=== PATIENT | female | born 1970 | race Caucasian/White ===

== ENCOUNTER → 2023-04-30 00:27 | Outpatient (CLI) | payer OTHER, SELFPAY ==
--- NOTE | 2023-04-30 | DI.MAMMO_ITS ---
Exam(s) MAMMO SCREENING EXAM: MAMMO SCREENING Samira HECTOR CLINICAL HISTORY: Z12.31 SCREENING FOR BREAST CANCER TECHNIQUE: Bilateral full field digital CC and MLO mammographic images were obtained with 3D tomosyn thesis and utilizing computer aided detection (CAD). COMPARISON: Available for comparison. FINDINGS: Masses/Architectural Distortion: None seen. Microcalcifications: No suspicious pleomorphic-type are seen. Skin Thickening/Nipple Retraction: None. IMPRESSION: 1. No significant interval change with no specific features of malignancy noted. 2. Unless there is more urgent need, screening mammography is recommended, as per [employer] guidelines. BI-RADS Category 1 - Negative Breast Density - Category C - Heterogeneously dense Breast density category C or D implies that the patient has dense breast tissue. Dense breast tissue is very common and is not abnormal but dense breast tissue can make it harder to find cancer on a ma mmogram. Also, dense breast tissue may increase their breast cancer risk. This information about the result of the mammogram report was provided to the patient to raise their awareness. Use this report when you speak with the patient about their risks for breast cancer, which includes their family hist ory. At that time, you may recommend for more screening tests (Ultrasound or MRI) as they might be us eful based on their risk. A negative radiographic report should not delay biopsy if a dominant or clinically suspicious mass is present. Up to ten percent of cancers are not identified on mammography. A negative report may reinforce clinical impression. Adenosis and dense breasts may obscure an underlying neoplasm. False positive reports average 6 to 10%. Patient will receive a letter notifying them of these results.
== END ==
PROVIDERS: Visit Provider Obstetrics & Gynecology
DX: Z12.31 Encounter for screening mammogram for malignant neoplasm of breast (principal)
CPT/HCPCS: 77063; 77067

== ENCOUNTER 2024-06-04 00:56 | Outpatient (CLI) | payer OTHER, SELFPAY ==
--- NOTE | 2024-06-04 09:15 | DI.MAMMO_ITS ---
Exam(s) MAMMO SCREENING EXAM: MAMMO SCREENING CLINICAL HISTORY: screening,z12.39 TECHNIQUE: Mammograms were interpreted according to the usual protocol including computer analysis w [employer] CAD system, tomosynthesis and C-view imaging. COMPARISON: 2015 through 2022 FINDINGS: The breasts are composed of heterogeneously dense fibroglandular densities, Breast Density category C . No suspicious masses or suspicious microcalcifications are seen. No skin thickening or abnormal axillary lymph nodes are seen. There has been no significant change from prior exams. IMPRESSION: BI-RADS Category 1, Negative mammogram. Yearly screening mammography is recommended. Breast Density Category C, heterogeneously Dense. The mammogram demonstrates the patient's breast tissue is dense. Dense breast tissue is very common a nd is not abnormal but dense breast tissue can make it harder to find cancer on a mammogram. Also, de nse breast tissue may increase breast cancer risk. This information about the result of the mammogram report was provided to the patient to raise their awareness. Use this report when you speak with the patient about their risks for breast cancer, which includes their family history. At that time, you may recommend additional screening tests (Ultrasound or MRI) as they might be useful based on their r isk. A negative radiographic report should not delay biopsy if a dominant or clinically suspicious mass is present. Up to ten percent of cancers are not identified on mammography. A negative report may reinforce clinical impression. Adenosis and dense breasts may obscure an underlying neoplasm. False positive reports average 6 to 10%.
--- NOTE | 2024-06-04 12:32 | DI.RAD_ITS ---
Exam(s) XR KNEE LT 3V AP,LAT,LEELA EXAM: XR KNEE LT 3V AP,LAT,LEELA CLINICAL HISTORY: lt knee pain,locking lt knee,assess bones,m25.562.[id number],m23.92. TECHNIQUE: 2D digital imaging was performed. Three views. COMPARISON: No exams were available for comparison FINDINGS: BONES: No acute fracture is present. No bony destructive lesion is seen. JOINTS: The knee is normally aligned. No joint effusion is seen. The joint spaces are maintained. N o significant degenerative changes. SOFT TISSUE: Normal. IMPRESSION: Normal radiographs of the left knee. DATA REPOSITORY: RADIATION DOSE DELIVERED:
== END 2024-06-04 01:16 ==
LOC: DI 00:57
PROVIDERS: PCP Nurse Practitioner Adult Health; Visit Provider Nurse Practitioner Adult Health
DX: Z12.31 Encounter for screening mammogram for malignant neoplasm of breast (principal); M25.562 Pain in left knee; R29.898 Other symptoms and signs involving the musculoskeletal system
CPT/HCPCS: 73562; 77063; 77067

== ENCOUNTER 2024-07-17 00:44 | Outpatient (CLI) | payer OTHER, SELFPAY ==
--- NOTE | 2024-07-17 07:45 | DI.MRI_ITS ---
Exam(s) MR LOWER JOINT LT WO EXAM: MR LOWER JOINT LT WO CLINICAL HISTORY: INTERNAL DERANGEMENT, lt knee pain, M25.562. TECHNIQUE: Multiplanar multisequence MRI was performed. COMPARISON: CR XR KNEE LT 3V AP,LAT,LEELA from 06/04/2024 FINDINGS: BONES: There is no fracture or contusion pattern. JOINTS: Articular cartilage is unremarkable. No effusion is present. TENDONS: Extensor mechanism: Unremarkable. Medial retinaculum: Unremarkable. Lateral retinaculum: Unremarkable. Popliteus: Unremarkable. MUSCLES: Unremarkable. MENISCI: There is hyperintense signal seen in the body and posterior horn of the medial meniscus cons istent with a tear. The lateral meniscus is unremarkable. SOFT TISSUES: There is a small popliteal cyst present. LIGAMENTS: Anterior Cruciate: Unremarkable. Posterior Cruciate: Unremarkable. Medial Collateral:Unremarkable. Lateral Collateral: Unremarkable. OTHER: IMPRESSION: 1. Tear of the body and posterior horn of the medial meniscus. 2. No evidence of a ligament tear. DATA REPOSITORY:
== END 2024-07-17 01:04 ==
LOC: DI 00:44
PROVIDERS: PCP Nurse Practitioner Adult Health; Visit Provider Student in an Organized Health Care Education/Training Program
DX: M23.222 Derangement of posterior horn of medial meniscus due to old tear or injury, left knee (principal)
CPT/HCPCS: 73721

== ENCOUNTER 2024-08-14 10:47 | Day surgery (SDC) | payer OTHER, SELFPAY ==
[2024-08-14] VITALS (26 sets, daily range): BP systolic 82–123; BP diastolic 44–70; PULSE 66–87; RESP 11–18; TEMP 36.2–36.5; O2SAT 94–100; BMI 24.7
--- NOTE | 2024-08-14 07:17 | ROE_ITS ---
Operative Note Operative Note PRE-OP DIAGNOSIS: Left knee 1. Medial meniscus tear POST-OP DIAGNOSIS: same PROCEDURE: Left knee 1. Partial medial meniscectomy, CPT #31062 SURGEON: Cuco West AGRICULTURE CONSULTANT: None None ANESTHESIA TYPE: Local By Surgeon and General LMA/ETT Refer to Anesthesia Record PATHOLOGY: none sent TOURNIQUET TIME: 0 Patient was transported to: PACU Patient's condition: stable Indications: Please see complete medical record for details. Findings: Exam under anesthesia: Full range of motion, no instability Arthroscopic findings: Large vertical peripheral capsular medial meniscus tear, with readily displaceable majority medial meniscus tissue somewhat and like a bucket handle but still slightly attached at the superior body capsular margin but defect void the majority the inferior portion and unstable through the posterior horn and anterior horns as well. Intact cartilage. Intact ACL. Intact lateral compartment. Small medial gutter plica. Patellofemoral cartilage intact. Suprapatellar space okay as well. Procedure Description: In the operating room, general anesthesia was induced. The patient was positioned supine on the operating room table. All bony prominences were well- padded. Preoperative antibiotics were administered. The knee was prepped and draped in the usual sterile fashion. The correct patient, procedure, and side of the procedure were all verified prior to incision. Exam under anesthesia was performed. 10 cc of 0.25% bupivacaine containing epinephrine was infiltrated about the planned anteromedial and anterolateral knee arthroscopy portals. The portals were established and a complete diagnostic arthroscopy was performed with relevant findings detailed above. Mechanical shaver was used to remove a smaller medial gutter plica. The medial meniscus tear was then inspected and unfortunately quite large and peripheral but had splits that continued from the body into the anterior and posterior horns in different planes. Given the advanced patient age, decision was made to proceed with meniscectomy over repair given the poor chance for healing in iso lation. Using a combination of hand instruments meniscal biters and power shaver and working through the anteromedial and anterolateral portals the meniscus was debrided of all torn tissue to a stable margin. Care was taken to preserve as much meniscus tissue was possible, but that only meant a small remnant of the posterior horn nearing the root and the anterior horn with the majority of the body resected to the peripheral margin. The remnant was inspected and stable with no additional tearing. The knee was copiously irrigated with arthroscopic fluid until there was a clear effluent before being drained of all fluid. The anteromedial and anterolateral portals were closed in 3-0 Monocryl in a buried interrupted fashion. An additional 20 cc of 0.25% bupivacaine containing epinephrine was infiltrated about the medial compartment cutaneous tissues in the region of medial meniscus surgery. Mastisol, Steri-Strips, and 4 x 4 gauze were applied over the incisions. The knee was then wrapped gently with an JOSEPH comressive bandage. The patient awoke from anesthesia without complication and was transferred to the recovery room in a stable condition. Date of Procedure: 08/14/24
--- NOTE | 2024-08-14 10:44 | W.PM.DSUDISC ---
Date of service: 08/14/24 Discharge Plan Disposition Patient Disposition: Home Condition: Stable Discharge Details Attending Provider: Cuco West Primary Care Provider: Jodie Mccloud Home Meds and New Rx's Prescriptions: New aspirin 81 mg capsule 81 mg PO DAILY 14 Days Qty: 14 0RF naproxen 250 mg tablet 250 - 500 mg PO BID PRN (Reason: moderate pain and swelling) Qty: 40 0RF oxycodone 5 mg tablet 5 - 10 mg PO .q4-6h MDD 30 mg PRN (Reason: severe pain) Qty: 18 0RF Continued folic acid 1 mg tablet 1 mg PO DAILY Qty: 90 3RF magnesium 200 mg tablet 200 mg PO QHS cranberry PO DAILY coenzyme Q10 [H2Q CoQ10] PO DAILY cholecalciferol (vitamin D3) 25 mcg (1,000 unit) capsule 25 mcg PO DAILY citalopram 10 mg tablet 10 mg PO DAILY Qty: 90 3RF sumatriptan succinate [Imitrex] 100 mg tablet 100 mg PO .COMPLEX Rx Instructions: Take 1 tab PO after onset of migraine; may repeat after 2 hours if headache returns, not to exceed 200mg in 24hrs-- hydroxyzine HCl 25 mg tablet 25 mg PO QID PRN Rx Instructions: take 1 tab PO up to 4 times a day for panic attack-- mecobalamin (vitamin B12) 500 mcg tablet,chewable 250 mcg PO .2 times a week Discharge Instructions Additional Instructions: Surgery: Left knee arthroscopy with subtotal medial meniscectomy 08/14/24 Activity: Weightbearing as tolerated. Advance range of motion as comfort allows. No knee brace or crutches needed as soon as comfortable. Recommend avoiding sports, pivoting, and squatting for 6-8 weeks. A physical therapy prescription will be sent electronically to start in about 3 weeks. Prescriptions: Aspirin 81 mg take 1 daily to prevent a blood clot for 14 days, starting tomorrow Naproxen 250 mg take 1-2 every 12 hours with a meal as needed for moderate pain Oxycodone 5 mg take 1-2 every 4-6 hours as needed for severe pain You may use [id number] Tylenol (acetaminophen) as needed for mild pain. These pain medications may be taken all at once or in different combinations as needed. Also, recommend Colace (docusate) as a stool softener as surgery and pain medicine cause constipation. You may try [id number] diphenhydramine (Benadryl) 25-50 mg nightly as a sleep aid Dressings: Leave dressing in place for 3 days. May then remove and leave open to air or cover incisions with Band-Aids. Leave the sticky Steri-Strips in place until they fall off or remove them after you shower. May shower after 5 days. Follow-up: 10-[address] West You may take off the leg compression stockings this evening at home. You may also leave them on a few days longer if you have a history of leg swelling or edema. Let us know right away if you develop any redness, drainage, fevers, chest pain, or trouble breathing. Do not drink alcohol or drive for at least 24 hours after anesthesia. Please call the office during business hours with any questions or concerns. Stand Alone Forms: Anesthesia Discharge Inst., Emilia Siu (U) Referrals: Cuco West MD [ [facility] STAFF PHYSICIAN] - 08/26/24 9:00 am Discharge Orders Discharge Orders: Discharge Order (Routine); Ordered 08/14/24 Ordered By: Nichelle Foley DS: Diagnosis Discharge Diagnosis (1) Tear of medial meniscus of left knee: Status: Acute
[2024-08-14] MEDS: Lactated Ringers 1,000 ML 30 ML IV (11:40)
--- NOTE | 2024-08-14 11:52 | ANES.PREOP_ITS ---
General Info Date of Service Date Performed: 08/14/24 Height: 5 ft 4 in Weight: 65.4 kg Body Mass Index (BMI): 24.7 Surgical Procedure: Operation Date: 08/14/24 12:25 Proposed Procedure Side Surgeon p Knee Arthroscopy Cuco West MD Meds Allergies and Home Medications Allergies Allergy/AdvReac Type Severity Reaction Status Date / Time Latex Allergy Mild Skin Rash Uncoded 08/14/24 11:24 Shellfish Derived Allergy Mild Skin Rash Uncoded 08/14/24 11:24 Tramadol Allergy Mild Skin Rash Uncoded 08/14/24 11:24 Ioversol Allergy Unknown Anaphylaxis Uncoded 08/14/24 11:24 Home Medication ?Medication ?Instructions ?Recorded hydroxyzine HCl 25 mg tablet 25 mg PO QID PRN 10/04/23 sumatriptan succinate 100 mg 100 mg PO .COMPLEX 10/04/23 tablet (Imitrex) cholecalciferol (vitamin D3) 25 25 mcg PO DAILY 11/28/23 mcg (1,000 unit) capsule coenzyme Q10 PO DAILY 11/28/23 cranberry PO DAILY 11/28/23 magnesium 200 mg tablet 200 mg PO QHS 11/28/23 mecobalamin (vitamin B12) 500 mcg 250 mcg PO .2 times a week 11/28/23 chewable tablet folic acid 1 mg tablet 1 mg PO DAILY #90 tabs 06/01/24 citalopram 10 mg tablet 10 mg PO DAILY #90 tabs 07/23/24 Current Visit Medications: Current Medications Generic Name Dose Route Start Last Admin Trade Name Freq PRN Reason Stop Dose Admin Ringer's Solution 1,000 mls @ 30 mls/hr 08/14/24 06:00 08/14/24 11:40 IV 08/14/24 23:59 30 mls/hr INFUSION PAM Administration Cefazolin Sodium/Dextrose 2 gm in 50 mls @ 100 mls/hr 08/14/24 06:00 Ancef Duplex IVPB 08/14/24 23:59 PREOP PAM Tranexamic Acid/Sodium Chloride 1,000 mg in 100 mls @ 600 mls/hr 08/14/24 06:00 IVPB 08/14/24 23:59 PREOP PAM IV Miscellaneous Supplies 1 each 08/14/24 06:00 Iv Access IV 08/14/24 23:59 DIRECTED PAM Oxycodone HCl 0 mg 08/14/24 10:43 Oxycodone 5 Mg Tab PO 09/13/24 10:42 Q3H PRN PRN Pain Sodium Chloride 0 ml 08/14/24 06:00 Normal Saline Flush 10 Ml Syr IV 08/14/24 23:59 PRN PRN Sodium Chloride 0 ml 08/14/24 06:00 Normal Saline 10 Ml Vial IJ 08/14/24 23:59 DIRECTED PRN Sterile Water 0 ml 08/14/24 06:00 Water,Injection,Sterile 10 Ml Vial IJ 08/14/24 23:59 DIRECTED PRN PFSH Active Problems Active Problems: Problem Status Onset Code Tear of medial meniscus of left knee Acute S83.242A Internal derangement of left knee Acute M23.92 Adjustment disorder with mixed anxiety and depressed mood Chronic ~08/2023 F43.23 Recurrent kidney stones Chronic N20.0 Bereavement, uncomplicated Chronic ~08/2022 Z63.4 Medical History Medical History Internal hemorrhoids 2022--on colonoscopy Sensorineural hearing loss (SNHL) of left ear Anxiety (~09/25/17) Migraine (~10/28/08) Stopped in a post-menopausal Obesity (~10/28/08) Hypertension Palpitation Anxiety Vertigo DUB (dysfunctional uterine bleeding) (~03/05/11) Kidney stone Surgical History Surgical History History of colonoscopy (~01/2023) [place]--10y recall History of cholecystectomy (~2011) H/O ureteroscopy (~2020) Right retrograde pyelogram, right ureteroscopy, basket stone retraction and stent placement. H/O dilation and curettage (~08/01/20) History of hysteroscopy (~08/01/20) History of appendectomy (~2007) H/O LEEP Tobacco Smoking/Tobacco Use Status: Never Passive smoking exposure: No Second hand exposure: No Alcohol Alcohol Intake: current Alcohol intake frequency: holidays/special occasions only Substance Use Substance use: Never Substance use type: does not use Vital Signs and Lab Results Vital Signs Most Recent Vital Signs in EMR: Most Recent Vital Signs Temp Pulse Resp BP Pulse Ox 36.2 C L 66 16 118/70 100 08/14/24 11:18 08/14/24 11:18 08/14/24 11:18 08/14/24 11:18 08/14/24 11:18 Lab Results Blood Type / Crossmatch: No Data to Display Complete Blood Count: No Data to Display Complete Metabolic Panel: 2 No Data to Display Liver Function Panel: No Data to Display Coagulation Panel: No Data to Display Cardiac Panel: No Data to Display Arterial Blood Gas: No Data to Display Venous Blood Gas: No Data to Display Pancreas Panel: No Data to Display Thyroid Panel: No Data to Display Infectious Disease: No Data to Display Blood Cultures: No Data to Display Toxicology Panel: No Data to Display Panel: No Data to Display Anesthesia Assessment and Plan Anesthesia History Personal History: PONV Family History: No Family History of Anesthesia Complications Exercise Tolerance Exercise Tolerance: Metabolic Equivalents>4 Pertinent Negatives Pertinent Negatives: No Symptoms of GERD Cardiac & Pulmonary Exam Cardiac Exam: Normal S1/S2 Heart Sounds Pulmonary Exam: Clear Bilateral Breath Sounds Implantable Cardiac Device Does patient have a Pacemaker or an ICD?: No Airway Exam Known Difficult Airway: No Mallampati Class: 2 Mouth Opening: Narrow (< 3cm) Thyromental Distance: Greater than 3 cm Neck Range of Motion: Full ROM Neck Circumference: Normal Teeth Condition: Normal Dentition ASA Classification ASA Score: ASA 2 Emergency Case?: No NPO Status NPO Status: NPO Clears >2 hours, Solids >8 hours Status Status: Not Relevant due to Medical History Anesthesia Plan Resuscitation Status: Full Code Anesthesia Technique: General Anesthesia Airway Planned: LMA Monitors Used: Standard Monitors
[2024-08-14] MEDS: ceFAZolin 2 GM/50 ML BAG IVPB (13:31)
[2024-08-14] MEDS: TRANEXAMIC ACID/SOD. CHL. 1,000 MG/100 ML BAG 600 MG IVPB (13:37)
[2024-08-14] MEDS: Bupivacaine 0.25% Pres-Free W/EPI 30 ML VIAL (14:04)
[2024-08-14] MEDS: EPINEPHrine 10 MG/10 ML ML (14:04)
[2024-08-14] MEDS: HYDROmorphone 1 MG/ML SYR IVP ×2 (14:35→14:49)
[2024-08-14] MEDS: ePHEDrine 25 MG/5 ML Syringe IVP ×3 (14:41→14:57)
--- NOTE | 2024-08-14 15:01 | W.ANESPOSTOP ---
Postoperative Evaluation Date, Time and Location Date Performed: 08/14/24 Time Performed: 15:01 Patient Location: PACU Vital Signs Most Recent Imported Vital Signs: Most Recent Vital Signs Temp Pulse Resp BP Pulse Ox 36.5 C 73 13 105/44 L 97 08/14/24 14:55 08/14/24 14:56 08/14/24 14:56 08/14/24 14:55 08/14/24 14:56 Pain Score Most Recent Pain Score: Most Recent Pain Score Pain Level 2 08/14/24 14:56 Assessment Mental Status: Awake (Alert & Oriented to Patient Baseline) Airway and Respiratory Function: Patent airway with normal (patient baseline) respiratory exam Cardiovascular Function: Hemodynamically Stable Hydration Status: Adequately Hydrated Nausea & Vomiting: No Nausea or Vomiting Pain: Pt. Denies Any Pain Peripheral Nerve Block: Patient did not receive a nerve block
== END 2024-08-14 16:37 | disposition home or self-care (01) ==
PROVIDERS: PCP Nurse Practitioner Adult Health; Visit Provider Student in an Organized Health Care Education/Training Program
PROC: (CPT 29870; principal; 2024-08-14 12:15)
DX: S83.242A Other tear of medial meniscus, current injury, left knee, initial encounter (principal); X58.XXXA Exposure to other specified factors, initial encounter
CPT/HCPCS: 29881; J0131; J0690; J1100; J1171; J1885; J2250; J2270; J2405; J2704

== ENCOUNTER 2024-10-21 15:02 | Outpatient (CLI) | payer OTHER, SELFPAY ==
--- NOTE | 2024-10-21 09:00 | DI.RAD_ITS ---
Exam(s) XR KNEE RT 3V AP,LAT,LEELA EXAM: XR KNEE RT 3V AP,LAT,LEELA CLINICAL HISTORY: RIGHT KNEE PAIN. TECHNIQUE: 2D digital imaging was performed of the right knee. Three views obtained. Merchant, AP an d lateral views were obtained. COMPARISON: CR XR KNEE LT 3V AP,LAT,LEELA from 06/04/2024 FINDINGS: BONES: No acute fracture is present. No bony destructive lesion is seen. JOINTS: The knee is normally aligned. No joint effusion is seen. SOFT TISSUE: Normal. IMPRESSION: Unremarkable radiographs of the right knee. DATA REPOSITORY: RADIATION DOSE DELIVERED:
== END 2024-10-21 15:03 | disposition home or self-care (01) ==
LOC: DIORS 15:02
PROVIDERS: PCP Nurse Practitioner Adult Health; Visit Provider Student in an Organized Health Care Education/Training Program
DX: M25.561 Pain in right knee (principal)
CPT/HCPCS: 73562

== ENCOUNTER 2024-11-13 00:21 | Outpatient (CLI) | payer OTHER, SELFPAY ==
--- NOTE | 2024-11-13 11:20 | DI.MRI_ITS ---
Exam(s) MR LOWER JOINT RT WO EXAM: MR LOWER JOINT RT WO CLINICAL HISTORY: PAIN,tear ,medial meniscus rt knee,s83.241a TECHNIQUE: Multiplanar multisequence MRI of the knee was performed. COMPARISON: MR MR LOWER JOINT LT WO from 07/17/2024 CR XR KNEE RT 3V AP,LAT,LEELA from 10/21/2024 FINDINGS: EFFUSION: There is a small amount of increased joint fluid. There is no large joint effusion. There is no significant rangel cyst in the popliteal fossa. MARROW:There is no evidence of fracture, bone contusion, nor osteochondral defects.. There are no si gnificant osseous lesions. PATELLOFEMORAL COMPARTMENT: The quadriceps tendon is intact. The patellar ligament is intact. There is no abnormal signal in the anterior intra-articular Hoffa fat pad. There is no significant thinning of the retropatellar cartilage. No evidence of fissure nor signific ant chondral defect. No osteochondral defect at this level.There is no intraosseous signal to sugges t recent patellar dislocation. There are no patellar retinacular tears. There is, however, mild increased signal at the patellar attachment site of the medial patellofemoral ligament. CRUCIATE LIGAMENTS: There is some thinning of 1 of the 2 fascicles of the ACL. No full-thickness tea r of the ACL.The posterior cruciate ligament is intact. MEDIAL COMPARTMENT/MEDIAL MENISCUS: There is a tear in the posterior horn of the medial meniscus. Th e abnormal intrameniscal signal in he is in the outer half the meniscus and violates the inferior art icular surface air seen on 1 image this is in the lateral 3rd.. The meniscal root is intact. No buc ket-handle configuration. No meniscocapsular separationMCL appears intact. There are no chondral defects, osteochondral defects, subarticular marrow edema, nor osteophytes evid ent. MEDIAL COLLATERAL LIGAMENT: Intact LATERAL COMPARTMENT/LATERAL MENISCUS: There is no evidence of lateral meniscal tear.There are no miroslava dral defects, osteochondral defects, subarticular marrow edema, nor osteophytes evident. ILIOTIBIAL BAND: Intact LATERAL COLLATERAL LIGAMENT COMPLEX: The fibular collateral ligament is intact. The biceps femoris t endon is intact.Popliteus muscle and tendon are intact. IMPRESSION: 1. There is a tear in the outer 3rd of the posterior horn of the medial meniscus which violates the i nferior articular surface in the outer 3rd. The anterior horn of the medial meniscus appears intact. There is no meniscocapsular separation and no evidence of medial collateral ligament tear. There a re no tears of the lateral meniscus. 2. There is some signal abnormality within the ACL and thinning of 1 of the 2 fascicles. There is, h owever, no evidence of full-thickness ACL tear. No evidence of pivot shift bone contusion signal. T he PCL is intact. 3. Medial and lateral collateral ligament complexes are intact. There is, however, mild increased si gnal at the insertion site of the medial patellofemoral ligament upon the patella. No abnormal [facility] signal nor osteochondral defect at this level. Adjacent vastus medialis appears unremarkable. 4. Small amount of increased joint fluid. No large joint effusion. No obvious loose intra-articular bodies. No osteochondral defects. DATA REPOSITORY:
== END 2024-11-13 00:41 ==
LOC: DI 00:22
PROVIDERS: PCP Nurse Practitioner Adult Health; Visit Provider Student in an Organized Health Care Education/Training Program
DX: S83.241D Other tear of medial meniscus, current injury, right knee, subsequent encounter (principal); X58.XXXD Exposure to other specified factors, subsequent encounter
CPT/HCPCS: 73721

== ENCOUNTER 2024-12-04 09:19 | Day surgery (SDC) | payer OTHER, SELFPAY ==
[2024-12-04] VITALS (27 sets, daily range): BP systolic 92–133; BP diastolic 39–70; PULSE 60–80; RESP 11–19; TEMP 36–36.6; O2SAT 92–100; BMI 25.9
--- NOTE | 2024-12-04 07:17 | W.PM.OP ---
Operative Note Operative Note PRE-OP DIAGNOSIS: Right knee 1. Medial meniscus tear POST-OP DIAGNOSIS: same Right knee 1. Medial meniscus tear 2. Very small white zone lateral meniscus body tear 3. Medial gutter plica PROCEDURE: Right knee 1. Partial medial and lateral meniscectomy, CPT #57796 SURGEON: Cuco West PLACEMENT COORDINATOR: None None ANESTHESIA TYPE: Local By Surgeon and General LMA/ETT Refer to Anesthesia Record ESTIMATED BLOOD LOSS: 5 PATHOLOGY: none sent TOURNIQUET TIME: 0 Patient was transported to: PACU Patient's condition: stable Indications: Please see complete medical record for details. Findings: Exam under anesthesia: Full range of motion, no instability Arthroscopic findings: Moderately sized medial gutter plica with impingement on the medial femoral condyle. Moderate anterior and patellofemoral synovitis. Similar to the contralateral side, posterior horn body junction medial meniscus peripheral complex tear with displaceable majority of the red-white and white zone of the meniscus at this junction into the compartment due to the deficient peripheral attachment/tear and softening poor quality meniscus in the zone. Very small white zone lateral meniscus tear. Intact ACL. Largely intact and healthy articular cartilage. Procedure Description: In the operating room, general anesthesia was induced. The patient was positioned supine on the operating room table. All bony prominences were well-padded. Preoperative antibiotics were administered. The knee was prepped and draped in the usual sterile fashion. The correct patient, procedure, and side of the procedure were all verified prior to incision. Exam under anesthesia was performed. 10 cc of 0.25% bupivacaine containing epinephrine was infiltrated about the planned anteromedial and anterolateral knee arthroscopy portals. An additional 10 cc was infiltrated about the medial compartment. The portals were established and a complete diagnostic arthroscopy was performed with relevant findings detailed above. The mechanical shaver and radiofrequency ablator were used to resect the prominent medial gutter plica to reduce impingement of the medial femoral condyle as well as expose the medial femoral condyle and access the medial compartment. Mechanical shaver was then used in the raphe ablator as well to debride some intercondylar and anterior synovitis. The medial meniscus was probed in the area of probable tear with displaceable tissue into the joint confirming the peripheral tear despite the initial relatively normal appearance with the tissue proven to be quite friable and readily resectable. Using a combination of hand instruments including meniscal biters and a power shaver and working through the anteromedial and anterolateral portals the posterior horn and body junction of the medial meniscus was debrided of all torn tissue to a stable margin. Care was taken to preserve as much meniscus tissue was possible while still contouring the deep nature of the tear into the remainder of the posterior and anterior horns. The meniscal remnant was probed and found to have a stable margin, stable root, and no other tears In the [id number] position, the lateral meniscus body was lightly trimmed with the torpedo shaver of some small white zone fraying type tearing. Under direct arthroscopic visualization an 18-gauge needle was passed into the knee from superolateral into the suprapatellar pouch. The knee was copiously irrigated with arthroscopic fluid until there was a clear effluent before being drained of all fluid. The anteromedial and anterolateral portals were closed in 3-0 Monocryl in a buried interrupted fashion. 10 cc of 0.25% bupivacaine with epinephrine was infiltrated into the knee through the previously placed needle. Mastisol, Steri-Strips, and 4 x 4 gauze were applied over the incisions. The knee was then wrapped gently with an JOSEPH comressive bandage. The patient awoke from anesthesia without complication and was transferred to the recovery room in a stable condition. Date of Procedure: 12/04/24
--- NOTE | 2024-12-04 07:23 | PDOC.DSDIS_ITS ---
Date of service: 12/04/24 Discharge Plan Disposition Patient Disposition: Home Condition: Stable Discharge Details Attending Provider: Cuco West Primary Care Provider: Jodie Mccloud Home Meds and New Rx's Prescriptions: New aspirin 81 mg capsule 81 mg PO DAILY 14 Days Qty: 14 0RF naproxen 250 mg tablet 250 - 500 mg PO BID PRN (Reason: moderate pain and swelling) Qty: 40 0RF oxycodone 5 mg tablet 5 - 10 mg PO .q4-6h MDD 30 mg PRN (Reason: severe pain) Qty: 12 0RF Continued folic acid 1 mg tablet 1 mg PO DAILY Qty: 90 3RF magnesium 200 mg tablet 200 mg PO QHS cranberry PO DAILY coenzyme Q10 [H2Q CoQ10] 1 cap PO DAILY cholecalciferol (vitamin D3) 25 mcg (1,000 unit) capsule 25 mcg PO DAILY citalopram 10 mg tablet 10 mg PO DAILY Qty: 90 3RF sumatriptan succinate [Imitrex] 100 mg tablet 100 mg PO .COMPLEX Rx Instructions: Take 1 tab PO after onset of migraine; may repeat after 2 hours if headache returns, not to exceed 200mg in 24hrs-- hydroxyzine HCl 25 mg tablet 25 mg PO QID PRN Rx Instructions: take 1 tab PO up to 4 times a day for panic attack-- mecobalamin (vitamin B12) 500 mcg tablet,chewable 250 mcg PO .2 times a week Discontinued naproxen 250 mg tablet 250 - 500 mg PO BID PRN (Reason: moderate pain and swelling) Qty: 40 0RF Discharge Instructions Additional Instructions: Surgery: Right knee arthroscopy with partial medial & very small lateral meniscectomy 12/04/24 Activity: Weightbearing as tolerated. Advance range of motion as comfort allows. No knee brace or crutches needed as soon as comfortable. Recommend a voiding sports, pivoting, and squatting for 6-8 weeks. A physical therapy prescription will be sent electronically to start in about 3 weeks. Prescriptions: Aspirin 81 mg take 1 daily to prevent a blood clot for 14 days, starting tomorrow Naproxen 250 mg take 1-2 every 12 hours with a meal as needed for moderate pain Oxycodone 5 mg take 1-2 every 4-6 hours as needed for severe pain You may use [id number] Tylenol (acetaminophen) as needed for mild pain. These pain medications may be taken all at once or in different combinations as needed. Also, recommend Colace (docusate) as a stool softener as surgery and pain medicine cause constipation. You may try [id number] diphenhydramine (Benadryl) 25-50 mg nightly as a sleep aid Dressings: Leave dressing in place for 3 days. May then remove and leave open to air or cover incisions with Band-Aids. Leave the sticky Steri-Strips in place until they fall off or remove them after you shower. May shower after 5 days. Follow-up: 10-[address] West You may take off the leg compression stockings this evening at home. You may also leave them on a few days longer if you have a history of leg swelling or edema. Let us know right away if you develop any redness, drainage, fevers, chest pain, or trouble breathing. Do not drink alcohol or drive for at least 24 hours after anesthesia. Please call the office during business hours with any questions or concerns. Stand Alone Forms: Anesthesia Discharge Inst., Crutch Training Instructions, Emilia Siu (DSU) Referrals: Cuco West MD [ [facility] STAFF PHYSICIAN] - 12/16/24 1:30 pm Discharge Orders Discharge Orders: Discharge Order (Routine); Ordered 12/04/24 Ordered By: Nichelle Foley DS: Diagnosis Discharge Diagnosis (1) Tear of medial meniscus of right knee: Status: Acute
--- NOTE | 2024-12-04 10:03 | W.ANESPRE ---
General Info Date of Service Date Performed: 12/04/24 Height: 5 ft 4 in Weight: 68.5 kg Body Mass Index (BMI): 25.9 Surgical Procedure: Operation Date: 12/04/24 10:55 Proposed Procedure Side Surgeon p Knee Arthroscopy w/Partial Medial Meniscectomy Right Cuco West MD Meds Allergies and Home Medications Allergies Allergy/AdvReac Type Severity Reaction Status Date / Time Latex Allergy Mild Skin Rash Uncoded 12/04/24 09:48 Shellfish Derived Allergy Mild Skin Rash Uncoded 12/03/24 11:40 Tramadol Allergy Mild Skin Rash Uncoded 12/04/24 09:48 Ioversol Allergy Unknown Anaphylaxis Uncoded 12/04/24 09:48 Home Medication ?Medication ?Instructions ?Recorded hydroxyzine HCl 25 mg tablet 25 mg PO QID PRN 10/04/23 sumatriptan succinate 100 mg 100 mg PO .COMPLEX 10/04/23 tablet (Imitrex) cholecalciferol (vitamin D3) 25 25 mcg PO DAILY 11/28/23 mcg (1,000 unit) capsule coenzyme Q10 1 cap PO DAILY 11/28/23 cranberry PO DAILY 11/28/23 magnesium 200 mg tablet 200 mg PO QHS 11/28/23 mecobalamin (vitamin B12) 500 mcg 250 mcg PO .2 times a week 11/28/23 chewable tablet folic acid 1 mg tablet 1 mg PO DAILY #90 tabs 06/01/24 citalopram 10 mg tablet 10 mg PO DAILY #90 tabs 07/23/24 Current Visit Medications: Current Medications Generic Name Dose Route Start Last Admin Trade Name Freq PRN Reason Stop Dose Admin Ringer's Solution 1,000 mls @ 30 mls/hr 12/04/24 06:00 IV 01/02/25 23:59 INFUSION PAM Cefazolin Sodium/Dextrose 2 gm in 50 mls @ 100 mls/hr 12/04/24 06:00 Ancef Duplex IVPB 01/02/25 23:59 PREOP PAM Tranexamic Acid/Sodium Chloride 1,000 mg in 100 mls @ 600 mls/hr 12/04/24 06:00 IVPB 01/02/25 23:59 PREOP PAM IV Miscellaneous Supplies 1 each 12/04/24 06:00 Iv Access IV 01/02/25 23:59 DIRECTED PAM Oxycodone HCl 0 mg 12/04/24 07:22 Oxycodone 5 Mg Tab PO 01/03/25 07:21 Q3H PRN PRN Pain Sodium Chloride 0 ml 12/04/24 06:00 Normal Saline Flush 10 Ml Syr IV 01/02/25 23:59 PRN PRN Sodium Chloride 0 ml 12/04/24 06:00 Normal Saline 10 Ml Vial IJ 01/02/25 23:59 DIRECTED PRN Sterile Water 0 ml 12/04/24 06:00 Water,Injection,Sterile 10 Ml Vial IJ 01/02/25 23:59 DIRECTED PRN PFSH Active Problems Active Problems: Problem Status Onset Code Tear of medial meniscus of right knee Acute S83.241A Tear of medial meniscus of left knee Acute S83.242A Adjustment disorder with mixed anxiety and depressed mood Chronic ~08/2023 F43.23 Recurrent kidney stones Chronic N20.0 Bereavement, uncomplicated Chronic ~08/2022 Z63.4 Medical History Medical History Internal hemorrhoids 2022--on colonoscopy Sensorineural hearing loss (SNHL) of left ear Anxiety (~09/25/17) Migraine (~10/28/08) Stopped in a post-menopausal Obesity (~10/28/08) Hypertension Palpitation Anxiety Vertigo DUB (dysfunctional uterine bleeding) (~03/05/11) Kidney stone Surgical History Surgical History History of colonoscopy (~01/2023) [place]--10y recall History of cholecystectomy (~2011) H/O ureteroscopy (~2020) Right retrograde pyelogram, right ureteroscopy, basket stone retraction and stent placement. H/O dilation and curettage (~08/01/20) History of hysteroscopy (~08/01/20) History of appendectomy (~2007) H/O LEEP Tobacco Smoking/Tobacco Use Status: Never Passive smoking exposure: No Second hand exposure: No Alcohol Alcohol Intake: current Alcohol intake frequency: holidays/special occasions only Alcohol type: wine Substance Use Substance use: Never Substance use type: does not use Vital Signs and Lab Results Vital Signs Most Recent Vital Signs in EMR: Most Recent Vital Signs Temp Pulse Resp BP Pulse Ox 36.6 C 66 14 133/70 100 12/04/24 09:40 12/04/24 09:40 12/04/24 09:40 12/04/24 09:40 12/04/24 09:40 Lab Results Blood Type / Crossmatch: No Data to Display Complete Blood Count: No Data to Display Complete Metabolic Panel: No Data to Display Liver Function Panel: No Data to Display Coagulation Panel: No Data to Display Cardiac Panel: No Data to Display Arterial Blood Gas: No Data to Display Venous Blood Gas: No Data to Display Pancreas Panel: No Data to Display Thyroid Panel: No Data to Display Infectious Disease: No Data to Display Blood Cultures: No Data to Display Toxicology Panel: No Data to Display Panel: No Data to Display Anesthesia Assessment and Plan Anesthesia History Personal History: No History of Anesthesia Complications Family History: No Family History of Anesthesia Complications Exercise Tolerance Exercise Tolerance: Metabolic Equivalents>4 Pertinent Negatives Pertinent Negatives: No Major Cardiovascular Symptoms or Complaints, No Major Pulmonary Symptoms or Complaints and No History of CVA/TIA Cardiac & Pulmonary Exam Cardiac Exam: Normal S1/S2 Heart Sounds Pulmonary Exam: Clear Bilateral Breath Sounds Implantable Cardiac Device Does patient have a Pacemaker or an ICD?: No Airway Exam Known Difficult Airway: No Mallampati Class: 2 Mouth Opening: Narrow (< 3cm) Thyromental Distance: Greater than 3 cm Neck Range of Motion: Full ROM Neck Circumference: Normal Teeth Condition: Normal Dentition ASA Classification ASA Score: ASA 2 Emergency Case?: No NPO Status NPO Status: NPO Clears >2 hours, Solids >8 hours Status Status: Not Relevant due to Medical History Anesthesia Plan Resuscitation Status: Full Code Anesthesia Technique: General Anesthesia Airway Planned: LMA Monitors Used: Standard Monitors
[2024-12-04] MEDS: Lactated Ringers 1,000 ML 30 ML IV (10:18)
[2024-12-04] MEDS: ceFAZolin 2 GM/50 ML BAG IVPB (10:30)
[2024-12-04] MEDS: TRANEXAMIC ACID/SOD. CHL. 1,000 MG/100 ML BAG 600 MG IVPB (10:38)
[2024-12-04] MEDS: Bupivacaine 0.25% Pres-Free W/EPI 30 ML VIAL (11:08)
[2024-12-04] MEDS: EPINEPHrine 10 MG/10 ML ML (11:08)
[2024-12-04] MEDS: fentaNYL 100 MCG/2 ML VIAL IVP ×2 (11:45→11:50)
[2024-12-04] MEDS: ePHEDrine 25 MG/5 ML Syringe IVP (11:58)
[2024-12-04] MEDS: Normal Saline 10 ML VIAL IJ (12:11)
[2024-12-04] MEDS: HYDROmorphone 2 MG/ML SYR IVP (12:11)
--- NOTE | 2024-12-04 12:35 | W.ANESPOSTOP ---
Postoperative Evaluation Date, Time and Location Date Performed: 12/04/24 Time Performed: 12:51 Patient Location: Day Surgery Unit Vital Signs Most Recent Imported Vital Signs: Most Recent Vital Signs Temp Pulse Resp BP Pulse Ox 36.1 C L 68 13 112/45 L 97 12/04/24 12:34 12/04/24 12:34 12/04/24 12:26 12/04/24 12:26 12/04/24 12:34 Pain Score Most Recent Pain Score: Most Recent Pain Score Pain Level 2 12/04/24 12:24 Assessment Mental Status: Awake (Alert & Oriented to Patient Baseline) Airway and Respiratory Function: Patent airway with normal (patient baseline) respiratory exam Cardiovascular Function: Hemodynamically Stable Hydration Status: Adequately Hydrated Nausea & Vomiting: No Nausea or Vomiting Pain: Pain is tolerable per patient Peripheral Nerve Block: Patient did not receive a nerve block
[2024-12-04] MEDS: oxyCODONE 5 MG TAB PO (12:56)
== END 2024-12-04 13:40 | disposition home or self-care (01) ==
PROVIDERS: PCP Nurse Practitioner Adult Health; Visit Provider Student in an Organized Health Care Education/Training Program
PROC: (CPT 29870; principal; 2024-12-04 10:45)
DX: S83.241A Other tear of medial meniscus, current injury, right knee, initial encounter (principal)
CPT/HCPCS: 29880; J0131; J0690; J1100; J1171; J1885; J2003; J2250; J2405; J2704; J3010

== ENCOUNTER 2025-06-07 02:05 | Outpatient (CLI) | payer OTHER, SELFPAY ==
[2025-06-07 09:40] LABS: Anion Gap 7.6 mmol/L (3-11); BUN 16 mg/dL (9-23); CO2 28.4 mmol/L (20.0-31.0); Calcium 9.0 mg/dL (8.3-10.6); Chloride 108 mmol/L (98-107); Cholesterol 161 mg/dL (<200); Glucose 104 mg/dL (74-106); HDL Cholesterol 54 mg/dL (>40); Potassium 4.6 mmol/L (3.5-5.1); Sodium 144 mmol/L (136-145)
== END 2025-06-07 02:06 | disposition home or self-care (01) ==
LOC: LBO 02:05
PROVIDERS: PCP Nurse Practitioner Adult Health; Visit Provider Nurse Practitioner Adult Health
DX: Z13.1 Encounter for screening for diabetes mellitus (principal); Z13.220 Encounter for screening for lipoid disorders
CPT/HCPCS: 36415; 80048; 80061

== ENCOUNTER → 2025-07-12 00:59 | Outpatient (CLI) | payer OTHER, SELFPAY ==
--- NOTE | 2025-07-12 07:30 | DI.MAMMO_ITS ---
Exam(s) MAMMO SCREENING EXAM: MAMMO SCREENING CLINICAL HISTORY: screening,Z12.39. TECHNIQUE: Bilateral full field digital CC and MLO mammographic images were obtained with 3D tomosynthesis and utilizing computer aided detection (CAD). COMPARISON: Prior mammograms were reviewed. FINDINGS: Fibroglandular tissue moderately dense No new right breast findings. The left side there is a subtle suggestion of a round nodule measuring 1.8 x 1.7 cm and located 4.5 cm in from the nipple on the CC view.. Further imaging recommended. There are no malignant-appearing microcalcification groups in either breast. There is no significant architectural distortion nor skin thickening-retraction. IMPRESSION: 1. No radiographic evidence of malignancy in the right breast. 2. Possible subtle round nodule in left breast as described above. Spot compression views and ultrasound recommended. BI-RADS Category 0 - Incomplete: Need additional imaging evaluation Breast Density - Category C - The breast are heterogeneously dense, which may obscure small masses. Breast density Category C or D implies that the patient has dense breast tissue. Dense breast tissue can make it harder to find cancer on a mammogram. Dense breast tissue is also associated with an increased risk of breast cancer. This information about the result of the mammogram report was provided to the patient to raise their awareness. Use this report when you speak with the patient about their risks for breast cancer, which includes their family history. At that time, you may recommend additional screening tests (Ultrasound or MRI) as these tests may add significant information. A negative radiographic report should not delay biopsy if a dominant or clinically suspicious mass is present. Up to ten percent of cancers are not identified on mammography. A negative report may reinforce clinical impression. Adenosis and dense breasts may obscure an underlying neoplasm. False positive reports average 6 to 10%. Patient will receive a letter notifying them of these results.
== END ==
LOC: DI 00:59
PROVIDERS: PCP Nurse Practitioner Adult Health; Visit Provider Nurse Practitioner Adult Health
DX: Z12.31 Encounter for screening mammogram for malignant neoplasm of breast (principal)
CPT/HCPCS: 77063; 77067